=== PATIENT | male | born 1980 | race Caucasian/White ===

== ENCOUNTER 2020-09-11 14:03 | Emergency (ER) | payer OTHER, SELFPAY ==
[2020-09-11 14:10] VITALS: BP 147/80; PULSE 76; RESP 16; TEMP 37.3; O2SAT 98
--- NOTE | 2020-09-11 14:18 | ED.DENTAL ---
HPI - Dental/Oral General Chief complaint: Dental/Oral Stated complaint: tooth inf History of Present Illness HPI Narrative: This is a 40-year-old male coming in complaining of right frontal dental pain with missing tooth with dental caries noted in the middle of the fractured tooth . Related Data Home Medications Medication Instructions Recorded Confirmed No Home Medications 09/11/20 09/11/20 Allergies Allergy/AdvReac Type Severity Reaction Status Date / Time No Known Allergies Allergy Verified 09/11/20 14:19 Review of Systems Review of Systems: Narrative: CONSTITUTIONAL: Denies fever, chills, or sweats. EYES: Denies visual changes, redness, or discharge. ENT: Denies rhinorrhea, congestion, sore throat, or otalgia. Dental pain CARDIOVASCULAR:Denies chest pain, palpitations, or edema. RESPIRATORY: Denies cough or dyspnea. GASTROINTESTINAL: Denies abdominal pain, nausea, vomiting, or diarrhea. GENITOURINARY: Denies dysuria or hematuria. SKIN:[Denies rash or itching. MUSCULOSKELETAL:Denies back pain, joint pain, or myalgia. NEUROLOGIC: Denies headache, numbness, or weakness. PSYCHIATRIC:Denies anxiety or depression PMFSH Comments At time as signature, I have reviewed and agree with nursing past medical, social, surgical and family history. Please see nursing chart for further information. There is no relevant family history pertinent to the presenting complaint. Exam Narrative: Exam Narrative: GENERAL:Well-appearing, well-nourished, and in no acute distress. HEAD:Normocephalic, atraumatic. EYES: PERRLA and EOMI. ENT: Nares clear, no rhinorrhea or epistaxis. Mucous membranes moist. Multiple dental caries with multiple fractures NECK: Supple. CHEST: Clear to auscultation. No respiratory distress. HEART: Regular rate and rhythm. Normal peripheral pulses. ABDOMEN: Soft, nontender, nondistended, normal active bowel sounds. EXTREMITIES: Normal range of motion. No edema. SKIN: Warm, dry, no rash. NEURO: No focal deficits. Alert and oriented x3. Course COLLEGE PROFESSOR/PA Physician Supervision Dental list given to patient Vital Signs Vital signs: Vital Signs Temperature 99.2 F 09/11/20 14:10 Pulse Rate 76 09/11/20 14:10 Respiratory Rate 16 09/11/20 14:10 Blood Pressure 147/80 H 09/11/20 14:10 Pulse Oximetry 98 09/11/20 14:10 Temperature 99.2 F 09/11/20 14:10 Pulse Rate 76 09/11/20 14:10 Respiratory Rate 16 09/11/20 14:10 Blood Pressure 147/80 H 09/11/20 14:10 Pulse Oximetry 98 09/11/20 14:10 Discharge Plan Discharge Clinical Impression: Dental caries, Dental abscess Patient Disposition: Home, Self-Care Condition: Stable Instructions: Antibiotic Form, Dental Abscess (ED) Additional Instructions: Antibiotic as directed Avoid temperature extremes May apply heat or ice to the face Gentle brushing and flossing Alternate tylenol and ibuprofen as needed for pain Follow-up with the dentist as soon as possible--see the list provided Prescriptions: New amoxicillin 500 mg capsule 500 mg PO Q12H 10 Days Qty: 20 RF: 0 ibuprofen 800 mg tablet 800 mg PO TID PRN (Reason: pain) Qty: 30 RF: 0 lidocaine HCl [Lidocaine Viscous] 2 % solution 5 ml mucous membrane TID PRN (Reason: pain) Qty: 100 RF: 0 No Action No Home Medications RF: 0 Follow-up/Referrals: PHYSICIAN,MGMT ANALYST [Primary Care Provider] - Stand Alone Forms: Work/School Release IP Time of Disposition: 14:29
== END 2020-09-11 14:36 | disposition home or self-care (01) ==
PROVIDERS: Emergency Provider Nurse Practitioner Family
DX: K02.9 Dental caries, unspecified (principal); K04.7 Periapical abscess without sinus
CPT/HCPCS: 99213; G0463